=== PATIENT | female | born 1955 | race Caucasian/White ===

== ENCOUNTER 2020-05-29 09:47 | Outpatient (CLI) | payer SELFPAY ==
[2020-05-29 10:02] LABS: Basophils Absolute Auto 0.09 K/mm3 (0.00-0.10); Basophils Percent Auto 1.2 % (0.0-1.0); Eosinophils Absolute Auto 0.14 K/mm3 (0.02-0.50); Eosinophils Percent Auto 1.8 % (1.0-6.0); Hematocrit 47.7 % (35.0-42.0); Hemoglobin 16.3 g/dL (11.7-13.8); Immature Granulocyte Absolute 0.03 K/mm3 (0.00-0.00); Immature Granulocyte Percent A 0.4 % (0.0-0.0); Lymphocytes Absolute Auto 1.82 K/mm3 (1.10-4.50); Lymphocytes Percent Auto 23.4 % (18.0-42.0); Mean Corpuscular HGB Conc 34.2 g/dL (32.0-36.0); Mean Corpuscular Volume 93.7 fL (78.0-102.0); Mean Platelet Volume 9.1 fl (9.2-11.8); Monocytes Absolute Auto 0.54 K/mm3 (0.10-0.90); Monocytes Percent Auto 6.9 % (2.0-11.0); Neutrophils Absolute Auto 5.2 K/mm3 (1.7-7.2); Neutrophils Percent Auto 66.3 % (50.0-70.0); Platelet Count Result 295 K/mm3 (150-420); Red Blood Count 5.09 M/mm3 (4.20-5.40); Red Cell Distribution Width 12.3 % (11.6-14.4); White Blood Count 7.8 K/mm3 (4.8-10.8)
[2020-05-29 11:17] LABS: Alanine Aminotransferase 21 U/L (14-59); Albumin Level 4.3 g/dL (3.4-5.0); Alkaline Phosphatase 141 U/L (46-116); Anion Gap 14.9 mmol/L (7-16); Aspartate Amino Transferase 21 U/L (15-37); Bilirubin,Total 0.7 mg/dL (0.00-1.00); Blood Urea Nitrogen 11 mg/dL (7-18); Calcium 9.3 mg/dL (8.5-10.1); Carbon Dioxide 26 mmol/L (21-32); Chloride 105 mmol/L (98-108); Cholesterol 146 mg/dL (0-200); Estimated Glomerular Filt Rate > 60; Glucose 82 mg/dL (70-99); HDL Direct 46 mg/dL (40-60); LDL Cholesterol Calculated 86 mg/dL (<130); Osmolality Calculated 292 mOsm/kg (285-295); Potassium 3.9 mmol/L (3.5-5.1); Sodium 142 mmol/L (136-145); Total Protein 7.5 g/dL (6.4-8.2); Triglycerides 69 mg/dL (0-150)
== END 2020-05-29 09:48 | disposition home or self-care (01) ==
PROVIDERS: PCP Internal Medicine; Visit Provider Internal Medicine
DX: E78.5 Hyperlipidemia, unspecified (principal); E87.6 Hypokalemia; E86.0 Dehydration
CPT/HCPCS: 36415; 80053; 80061; 85025

== ENCOUNTER 2021-02-22 12:24 | Outpatient (CLI) | payer MEDICARE, SELFPAY ==
--- NOTE | ~2021-02-22 | MM_ITS ---
EXAMINATION: MM screening steven BI w ramesh HISTORY: Screening mammogram, history of right breast cancer TECHNIQUE: Craniocaudal and mediolateral oblique 3-D tomosynthesis images were obtained and synthetic 2-D images were generated. CAD analysis was submitted and interpreted. COMPARISON: No prior mammogram is available for comparison at this institution. BREAST PARENCHYMAL COMPOSITION: There are scattered areas of fibroglandular density. FINDINGS: Slight difference in breast size, right smaller than left, likely relate to treatment for b reast cancer. There is no evidence of suspicious mass, calcification, or architectural distortion to suggest malignancy in either breast. IMPRESSION: 1. No mammographic evidence of malignancy. 2. Recommend routine screening mammography in one year. BI-RADS Category 1: Negative Reviewed, dictated and finalized at location A.
--- NOTE | ~2021-02-22 | DEXA_ITS ---
Bone Density Report Name: Maty Jarvis Age: 65 Sex: Female Ethnicity: White Date of : 1955 Indication: postmenopausal; screening for osteoporosis; cancer; Referring Provider: Catherine, Stefani Pineda Study: Bone densitometry was performed. Exam Date: February 22, 2021 Accession number: [id number] Bone Density: Region BMD T-score Z-score Classification AP Spine(L1-L4) 0.932 -1.0 0.8 Normal Femoral Neck (Left) 0.610 -2.2 -0.6 Osteopenia Total Hip (Left) 0.864 -0.6 0.7 Normal Femoral Neck (Right) 0.655 -1.8 -0.2 Osteopenia Total Hip (Right) 0.846 -0.8 0.5 Normal Femoral Neck Mean 0.632 -2.0 -0.4 Osteopenia Total Hip Mean 0.855 -0.7 0.6 Normal World Health Organization criteria for BMD impression classify patients as: Normal (T-score at or above -1.0), Osteopenia (T-score between -1.0 and -2.5), or Osteoporosis (T-score at or below -2.5). 10-year Fracture Risk(1): Major Osteoporotic Fracture 11% Hip Fracture 3.3% Reported Risk Factors: [place] (), Neck BMD=0.610, BMI=21.8, smoking (1) FRAX(R) Version 3.08. Fracture probability calculated for an untreated patient. Fracture probability may be lower if the patient has received treatment. Previous Exams: Region Exam Age BMD T-score BMD Change BMD Change Date g/cm2 vs Baseline vs Previous AP Spine (L1-L4) 02/22/2021 65 0.932 -1.0 -0.018 (-1.8%) -0.018 (-1.8%) 04/15/2015 59 0.950 -0.9 Total Hip(Left) 02/22/2021 65 0.864 -0.6 0.000 (0.0%)# 0.000 (0.0%)# 04/15/2015 59 0.864 -0.6 *Denotes significance at 95% confidence level, LSC for AP Spine = 0.022 g/cm2, LSC for Total Hip = 0.027 g/cm2 # Denotes dissimilar scan types or analysis methods Clinical Information Provided by Patient: Smokes Has used the following medications: Vitamin D Has the following medical conditions: Cancer Patient maximum height was 62 No regular weight bearing exercise Drinks caffeinated beverages Onset of menses at age 10 Number of children 3 Impression: The patient has low bone mass, based on the Left Femoral Neck T-score. The patient has risk factors, including: smoking. No significant bone loss was observed. Discussion: BONE DENSITY IS LOW AT ONE OR MORE SKELETAL SITES. This patient's lowest T-score is low at one or more skeletal sites. It meets the World Health Organization's (WHO) criteria for ?low bone mass? (T-score between -1.0 and -2.5). The patient's 10-year risk of fracture as calculated by F
== END 2021-02-22 12:25 | disposition home or self-care (01) ==
PROVIDERS: PCP Internal Medicine; Visit Provider Nurse Practitioner Family
DX: Z12.31 Encounter for screening mammogram for malignant neoplasm of breast (principal); Z78.0 Asymptomatic menopausal state
CPT/HCPCS: 77063; 77067; 77080

== ENCOUNTER 2022-05-05 13:49 | Outpatient (CLI) | payer MEDICARE, SELFPAY ==
--- NOTE | ~2022-05-05 | US_ITS ---
EXAMINATION: US arterial ankle brachial ind DATE: 05/05/2022 14:53 INDICATION: Peripheral arterial disease. Smoker. TECHNIQUE: Segmental pressures and plethysmographic and Doppler waveforms of the brachial and lower e xtremity arteries were obtained. COMPARISON: None. FINDINGS: Right and left brachial artery pressures of 121 mm Hg and 113 mm Hg, respectively, are concordant (no rmal difference <= 30 mmHg). The right ankle-brachial index (MARCI) is 0.82 (normal >= 0.9-1.0). Arterial Doppler waveforms are biph asic with minimal flow reversal. The left MARCI is 0.91. Arterial Doppler waveforms are biphasic with minimal flow reversal. IMPRESSION: Right MARCI is mildly diminished at 0.82 Left MARCI within lower limits of normal range at 0.91 Reviewed, dictated and finalized at Location A. Reviewed, dictated and finalized at location A.
== END 2022-05-05 13:50 | disposition home or self-care (01) ==
LOC: CHSIMG 13:51
PROVIDERS: PCP Internal Medicine; Visit Provider Nurse Practitioner Family
DX: I73.9 Peripheral vascular disease, unspecified (principal); F17.200 Nicotine dependence, unspecified, uncomplicated
CPT/HCPCS: 93922

== ENCOUNTER 2022-05-17 13:43 | Outpatient (CLI) | payer MEDICARE, SELFPAY ==
--- NOTE | ~2022-05-17 | XR_ITS ---
EXAM: XR lumbar spine 2-3V DATE: 05/17/2022 14:28 HISTORY: back pain . COMPARISON: 11/21/2012. FINDINGS: Cholecystectomy clips. Mid abdominal surgical material, possible coils. Decreased mineraliz ation. 5 nonrib-bearing lumbar-type vertebral bodies. Pedicles intact. Normal vertebral body alignmen t. Vertebral body heights preserved. Multilevel disc space narrowing and marginal osteophytosis, mode rate at L3-4. Multilevel facet sclerosis. No fracture or dislocation. IMPRESSION: Osteopenia Multilevel mild-moderate degenerative disc disease. Multilevel facet arthropat hy. Reviewed, dictated and finalized at location K. IMPRESSION: Osteopenia Multilevel mild-moderate degenerative disc disease. Mult ilevel facet arthropathy.
--- NOTE | ~2022-05-17 | MM_ITS ---
EXAMINATION: MM screening steven BI w ramesh HISTORY: Screening mammogram TECHNIQUE: Craniocaudal and mediolateral oblique 3-D tomosynthesis images were obtained and synthetic 2-D images were generated. CAD analysis was submitted and interpreted. COMPARISON: 02/22/2021, 02/22/2019 bilateral screening mammogram examinations BREAST PARENCHYMAL COMPOSITION: There are scattered areas of fibroglandular density. FINDINGS: Surgical clips, right axillary area with axillary node dissection. History of right partial mastectomy for breast cancer. There is no evidence of suspicious mass, calcification, or architectur al distortion to suggest malignancy in either breast. There has been no suspicious interval change. IMPRESSION: 1. No mammographic evidence of malignancy. 2. Recommend routine screening mammography in one year. BI-RADS Category 2: Benign finding(s). Reviewed, dictated and finalized at location A.
== END 2022-05-17 13:44 | disposition home or self-care (01) ==
LOC: CHSIMG 13:45
PROVIDERS: PCP Internal Medicine; Visit Provider Internal Medicine
DX: M54.9 Dorsalgia, unspecified (principal); Z12.31 Encounter for screening mammogram for malignant neoplasm of breast
CPT/HCPCS: 72100; 77063; 77067

== ENCOUNTER 2023-01-12 10:10 | Outpatient (CLI) | payer MEDICARE, SELFPAY ==
--- NOTE | ~2023-01-12 | XR_ITS ---
XR chest 2V 01/12/2023 10:36 Indication: Right rib pain Procedure: 2 view chest Comparison: 07/18/2018 Findings: There are surgical changes overlying the right thorax laterally. Heart size normal. No foca l air space disease, pulmonary edema, pleural effusion or suspected pneumothorax. The lungs are hyper inflated which is consistent with, but not diagnostic of chronic obstructive pulmonary disease. There are cholecystectomy clips. There is pectus excavatum. Impression: 1: No acute cardiopulmonary disease. Reviewed, dictated and finalized at location A. OR PRODUCT DESIGNER Impression: 1: No acute cardiopulmonary disease.
== END 2023-01-12 10:11 | disposition home or self-care (01) ==
PROVIDERS: PCP Internal Medicine; Visit Provider Internal Medicine
DX: R07.89 Other chest pain (principal)
CPT/HCPCS: 71046

== ENCOUNTER 2023-06-27 15:19 | Outpatient (CLI) | payer MEDICARE, SELFPAY ==
--- NOTE | ~2023-06-27 | XR_ITS ---
EXAM: XR hip RT min 2V DATE: 06/27/2023 15:43 HISTORY: Fall x3 weeks, right hip pain . COMPARISON: 08/14/2013. FINDINGS: Decreased mineralization. No fracture or dislocation. No lytic or blastic lesion. Joint sp aces are maintained. No erosion or periosteal change. Soft tissues within normal limits. IMPRESSION: No acute osseous finding in the right hip. Reviewed, dictated and finalized at location K.
== END 2023-06-27 15:20 | disposition home or self-care (01) ==
PROVIDERS: PCP Internal Medicine; Visit Provider Internal Medicine
DX: G89.29 Other chronic pain (principal); E78.5 Hyperlipidemia, unspecified; M25.551 Pain in right hip
CPT/HCPCS: 73502

== ENCOUNTER 2025-11-06 11:37 | Outpatient (CLI) | payer MEDICAID, MEDICARE, SELFPAY ==
--- NOTE | ~2025-11-06 | XR_ITS ---
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 Technique: 2 views obtained. Findings: The lungs are clear, no effusion. No pneumothorax. Heart is normal size. Mediastinal and hilar contours are within normal limits. Bony thorax no acute abnormality. Impression: No acute cardiopulmonary abnormality. Reviewed, dictated and finalized at location P. DISTRIBUTOR Impression: No acute cardiopulmonary abnormality.
[2025-11-06 12:20] LABS: Hematocrit 43.6 % (35.0-42.0); Hemoglobin 15.0 g/dL (11.7-13.8); Mean Corpuscular HGB Conc 34.4 g/dL (32-36); Mean Corpuscular Hemoglobin 31.8 pg (27.0-31.0); Mean Corpuscular Volume 92.6 fL (78.0-102.0); Platelet Count Result 436 K/mm3 (150-420); Red Blood Count 4.71 M/mm3 (4.20-5.40); White Blood Count 21.5 K/mm3 (4.8-10.8)
[2025-11-06 12:32] LABS: Add Urine Microscopic? YES; Appearance Urine Cloudy (Clear); Glucose Urine UA Negative (Negative); Leukocyte Esterase Ur 2+ LEU/UL (Negative); Nitrate Urine Positive (Negative); Specific Grav Ur 1.015 (1.010-1.020)
[2025-11-06 12:36] LABS: Alanine Aminotransferase 53 U/L (6-35); Albumin Level 4.5 g/dL (3.5-5.1); Alkaline Phosphatase 167 U/L (38-126); Anion Gap 15 mmol/L (4-12); Aspartate Amino Transferase 146 U/L (14-36); Bilirubin,Total 1.4 mg/dL (0.2-1.3); Blood Urea Nitrogen 35 mg/dL (7-17); CRP 5.4 mg/dL (<1.0); Calcium 9.3 mg/dL (8.4-10.2); Carbon Dioxide 32 mmol/L (22-30); Chloride 91 mmol/L (98-107); Estimated Glomerular Filt Rate > 60; Glucose 110 mg/dL (65-110); Osmolality Calculated 295 mOsm/kg (285-295); Sodium 138 mmol/L (137-145); Total Protein 7.5 g/dL (6.3-8.2)
[2025-11-06 12:44] LABS: Potassium 2.7 mmol/L (3.4-5.0)
[2025-11-06 12:50] LABS: Free T4 Free Thyroxine 2.21 ng/dL (0.78-2.19)
[2025-11-06 12:51] LABS: Free T3 2.54 pg/mL (2.18-3.98)
[2025-11-06 13:04] LABS: Thyroid Stimulating Hormone 1.150 uIU/mL (0.465-4.680)
[2025-11-06 13:40] LABS: Vitamin B12 915.0 pg/mL (239-931)
[2025-11-07 15:09] LABS: ANA by IFA Rfx Titer/Pattern Negative (.)
== END 2025-11-06 11:38 | disposition home or self-care (01) ==
PROVIDERS: PCP Internal Medicine; Visit Provider Internal Medicine
DX: K62.5 Hemorrhage of anus and rectum (principal); R63.4 Abnormal weight loss; I73.9 Peripheral vascular disease, unspecified
CPT/HCPCS: 36415; 71046; 80053; 81001; 82607; 82746; 83921; 84439; 84443; 84481; 85027; 86037; 86038; 86140; 87086; 87186

== ENCOUNTER 2025-11-06 15:01 | Emergency (ER) | payer MEDICARE, MEDICAID, SELFPAY ==
[2025-11-06] VITALS (46 sets, daily range): BP systolic 80–125; BP diastolic 44–77; PULSE 69–88; RESP 11–21; TEMP 36.7; O2SAT 93–100
--- NOTE | ~2025-11-06 | XR_ITS ---
EXAMINATION: XR chest 1V portable DATE: 11/06/2025 16:07 INDICATION: Leukocytosis. History of breast cancer status post surgery. TECHNIQUE: A single frontal view of the chest was obtained. COMPARISON: Chest x-ray 11/06/2025 at 12:21 PM. FINDINGS: Heart size is normal. Lungs are clear of acute process. Postsurgical changes of right breast and axilla. IMPRESSION: 1. No acute findings. No interval change from earlier study of same date. Reviewed, dictated and finalized at location T. TRAINER
--- NOTE | ~2025-11-06 | CT_ITS ---
EXAM/PROCEDURE: CT abdomen pelvis wo con HISTORY: Urinary tract infection/rule out pyelo COMPARISON: July 03, 2013 TECHNIQUE: Noncontrast CT of the abdomen and pelvis performed. FINDINGS: In the lung bases, minimal reticulation and groundglass opacification in the lung bases. 5 x 4 mm nodule also present in the left lung base image 12 series 4. Partially visualized pericardial effusion measuring up to 8 mm along the lower anterior margin. In the abdomen and pelvis, the bowel gas pattern is nonobstructive with no free air free fluid or pneumatosis seen. Pelvocaliectasis of the left kidney with borderline mild hydronephrosis present. 5 x 4 mm stone in the upper pole of the left kidney. No definite ureteral stones seen, although the mid and distal ureters are poorly seen. The right kidney appears normal with no urolithiasis or evidence of hydronephrosis or hydroureter. Urinary bladder is nondistended but appears grossly normal for technique. No grossly inflamed appendix. No AAA. Moderately extensive atherosclerotic calcification present. Pancreas spleen stomach and liver as well as adrenal glands appear normal. Uterus and adnexal regions appear within normal limits. Para diffuse degenerative changes throughout the bones. No bulky mesenteric or retroperitoneal lymphadenopathy or masses. IMPRESSION: 1. Directed noncontrast CT of the abdomen and pelvis demonstrating possible early or mild obstruction involving the left kidney. 5 x 4 mm left kidney stone with no definite ureteral stones identified. 2. Small areas of patchy opacification lung bases possibly representing sequelae from previous infection or aspiration. There is a 5 mm left lung base nodule. Correlate with follow-up nonemergent chest CT. 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 Directed noncontrast CT of the abdomen and pelvis demonstrating possible ear ly or mild obstruction involving the left kidney. 5 x 4 mm left kidney stone wi th no definite ureteral stones identified. 2. Small areas of patchy opacification lung bases possibly representing sequela e from previous infection or aspiration. There is a 5 mm left lung base nodule. Correlate with follow-up nonemergent chest CT.
--- NOTE | 2025-11-06 15:25 | ECG_ITS ---
Test Date: 2025-11-06 15:37:32 Measurements Intervals Sloan Rate: 76 P: 64 MA: 161 QRS: 30 QRSD: 129 T: 264 QT: 361 QTc: 407 Interpretive Statements SINUS RHYTHM WITH SINUS ARRHYTHMIA POSSIBLE LEFT ATRIAL ENLARGEMENT INCOMPLETE RIGHT BUNDLE BRANCH BLOCK ST-T WAVE ABNORMALITY IN ANTEROLAT/INF LEADS- CONSIDER ISCHEMIA BASELINE ARTIFACT- I, II, III, AVR, AVL, AVF, V6 ABNORMAL ECG No previous ECG available for comparison Electronically Signed On 11-06-2025 16:25:43 PROPOSAL REP by Joel Bañuelos D.O.
[2025-11-06 16:03] LABS: INR 1.0; Partial Thromboplastin Time 26.3 Sec (23.9-30.70); Prothrombin Time 11.5 Seconds (9.50-12.1)
[2025-11-06] MEDS: KCL 20 MEQ/SW 100 ML 100 ML 50 MEQ IVPB (16:15)
[2025-11-06] MEDS: SODIUM CHLORIDE 0.9% IV 1,000 ML 999 ML IV CONT ×4 (16:16→21:57)
[2025-11-06] MEDS: POTASSIUM BICARBONATE 25 MEQ TABEF 50 MEQ PO (16:16)
--- NOTE | 2025-11-06 17:34 | ED_ITS ---
HPI - Recheck/Abnormal Lab/Rx General Chief Complaint: Recheck/Abnormal Lab/Rx Stated Complaint: abnormal labs Time Seen by Provider: 11/06/25 15:16 Source: patient and family Mode of arrival: ambulatory Limitations: no limitations History of Present Illness HPI narrative: This is a 69-year-old female that has a history of hypertension presents to her primary care physician's office with some episodes of diarrhea for the last 2 weeks but that has recently resolved but having toe pain and went to see her primary care physician patient was also having acid fatigue with no chest pain no nausea vomiting patient is not short of breath currently no diarrhea no abdominal pain no flank pain does have some suprapubic tenderness and dysuria. Labs performed by her PCP showed an elevated white count with a decreased potassium level and positive urinalysis. Related Data Allergies Allergy/AdvReac Type Severity Reaction Status Date / Time No Known Allergies Allergy Verified 11/06/25 15:29 Review of Systems Review of Systems: All systems reviewed & are unremarkable except as noted in HPI and below PMFSH Past Medical History Medical History HTN (hypertension) Exam Const: General: no acute distress Nutritional Appearance: thin Orientation/consciousness: patient oriented x3 HENMT: Head: normal to inspection Neck: Neck: normal visual inspection, no lymphadenopathy and no meningeal signs Chest: Chest palpation & inspection: normal inspection of the chest Resp: Effort & Inspection: normal respiratory effort Auscultation: clear to auscultation bilaterally Cardio: Rate: regular rate Rhythm: regular rhythm GI: Auscultation: normal bowel sounds : Other: Suprapubic tenderness Back/Spine/Pelvis: Back: no CVA tenderness Skin: General skin exam: normal color Rashes: no rashes Wounds: no wounds Neuro: General: patient oriented x3, moves all extremities and no meningeal signs Extrem: General: normal to inspection, no clubbing, cyanosis or edema and no pedal edema Course Course Emergency Course: Medical decision making narrative: The patient was evaluated by myself in the emergency department. History obtained from the patient who is in the pannus story and physical exam performed witnessed by nurse. EKG performed showed normal sinus rhythm with no ST or T changes a chest x-ray performed showed no acute cardiopulmonary abnormality CT abdomen without contrast performed shows some bibasilar opacities consistent with pneumonia with a elevated white count and an elevated lactic acid of 2.4. Patient had a potassium level of 2.7 and was given normal saline with some K rider. Patient had a UA that was positive and started on ceftriaxone and azithromycin. Repeat assessment: Patient doing well on repeat exam with no acute distress Symptoms and have are stable since arrival to the emergency department Repeat vitals are stable Patient agrees with discussion after shared medical decision making and agrees with admission. All questions answered to the patient's satisfaction. Vital Signs Vital signs: Vital Signs Temperature 36.7 C 11/06/25 15:01 Pulse Rate 80 11/06/25 15:01 Respiratory Rate 20 11/06/25 15:01 Blood Pressure 125/58 L 11/06/25 15:01 Pulse Oximetry 100 11/06/25 15:01 Oxygen Delivery Room Air 11/06/25 15:01 Temperature 36.7 C 11/06/25 15:01 Pulse Rate 80 11/06/25 15:01 Respiratory Rate 20 11/06/25 15:01 Blood Pressure 125/58 L 11/06/25 15:01 Pulse Oximetry 100 11/06/25 15:01 Oxygen Delivery Room Air 11/06/25 15:01 MDM Differential Diagnosis Differential Diagnosis: Pneumonia/UTI/hypokalemia Lab Data Labs: Lab Results 11/06/25 Range/Units 15:44 PT 11.5 (9.50-12.1) Seconds INR 1.0 APTT 26.3 (23.9-30.70) Sec Lactic Acid 2.4 H (0.7-2.0) mmol/L Imaging Data Radiologist's impression: ITS Impressions Chest X-Ray 11/06/25 16:08 IMPRESSION: 1. No acute findings. No interval change from earlier study of same date. Abdomen/Pelvis CT 11/06/25 16:09 IMPRESSION: 1. Directed noncontrast CT of the abdomen and pelvis demonstrating possible early or mild obstruction involving the left kidney. 5 x 4 mm left kidney stone with no definite ureteral stones identified. 2. Small areas of patchy opacification lung bases possibly representing sequelae from previous infection or aspiration. There is a 5 mm left lung base nodule. Correlate with follow-up nonemergent chest CT. Critical Care Time Critical Care Time Critical Care Time: No Discharge Plan Discharge Clinical Impression: Acute hyperkalemia, Acute UTI Pneumonia Qualifiers: Pneumonia type: due to unspecified organism Laterality: bilateral Lung location: lower lobe of lung Qualified Code(s): J18.9 - Pneumonia, unspecified o rganism Patient Disposition: Acute Care Hospital Condition: Guarded Prognosis Patient Language: Gambian Follow-up/Referrals: Moise Monae MD [Primary Care Provider, Internal Medicine] Time of Disposition: 17:41
--- OUTSIDE RECORDS SUMMARY | 2025-11-06 18:10 | XMS_ITS | Encounter Summary ---
Author Organization [facility] Address [address] [place] [address] Care Team Providers Care Sap Plant Maintenance Consultant Name Role Phone Moise Monae MD Primary Care Provider [phone] Stuart Gilman MD Unavailable [phone] Encounter Details Date Type Department Care Team (Latest Contact Info) Description 10/02/2018 Abstract [facility] Trinidad Marina MD Social History Tobacco Use Types Packs/Day Years Used Date Smoking Tobacco: Smoker, Current Status Unknown Comments Unknown Sex and Gender Information Value Date Recorded Sex Assigned at Not on file Legal Sex Female 9:10 PM CDT Gender Identity Not on file Sexual Orientation Not on file documented as of this encounter Plan of Treatment Not on file documented as of this encounter Visit Diagnoses Not on filedocumented in this encounter Care Teams Sap Plant Maintenance Consultant Relationship Specialty Start Date End Date Moise Monae MD PCP - General INTERNAL MEDICINE 08/24/18 Stuart Gilman MD Referring Physician INTERVENTIONAL CARDIOLOGY 08/24/18 documented as of this encounter
--- OUTSIDE RECORDS SUMMARY | 2025-11-06 18:10 | XMS_ITS | Clinical Summary ---
Author Organization [facility] Address [facility] [place] [address] Care Team Providers Care Branch Operations Manager Name Role Phone Moise Monae MD Primary Care Provider [phone] Stuart Gilman MD Unavailable [phone] Allergies No known active allergies Medications nortriptyline (PAMELOR) 10 MG capsule Take 3 tablets by mouth nightly at bedtime. 10/07/2015 Active cyclobenzaprine (FLEXERIL) 10 MG tablet Take 1 tablet by mouth nightly at bedtime. 10/07/2015 Active atorvastatin 40 MG tablet Take 1 tablet by mouth nightly. 11/18/2015 Active aspirin 325 MG tablet Take 1 tablet by mouth daily. 10/07/2015 Active Multiple Vitamin (DAILY-VITAMIN) Tab Take 1 tablet by mouth daily. 30 tablet 08/24/2018 Active Active Problems Problem Noted Date Diagnosed Date Small bowel intussusception 01/10/2019 Hyperlipidemia Essential hypertension Bilateral carotid artery stenosis Family History Medical History Relation Comments Sudden Cardiac Brother Heart Attack Father Cancer Mother Hypertension Mother Relation Status Comments Brother Father Mother Social History Tobacco Use Types Packs/Day Years Used Date Smoking Tobacco: Former Cigarettes Q uit: 2018 Smokeless Tobacco: Never Comments No Sex and Gender Information Value Date Recorded Sex Assigned at Not on file Legal Sex Female 9:10 PM CDT Gender Identity Not on file Sexual Orientation Not on file Last Filed Vital Signs Vital Sign Reading Time Taken Comments Blood Pressure 132/61 09/30/2019 10:35 AM VALET RUNNER Pulse 74 09/30/2019 10:35 AM VALET RUNNER Temperature 36.6 C (97.9 F) 09/30/2019 10:06 AM VALET RUNNER Respiratory Rate 20 09/30/2019 10:35 AM VALET RUNNER Oxygen Saturation 100% 09/30/2019 10:35 AM VALET RUNNER Inhaled Oxygen Concentration - - Weight 49.9 kg (110 lb) 09/30/2019 8:30 AM VALET RUNNER Height 160 cm (5' 3) 09/30/2019 8:30 AM VALET RUNNER Body Mass Index 19.49 09/30/2019 8:30 AM VALET RUNNER Plan of Treatment Health Maintenance Due Date Last Done Comments Hepatitis C 1972 DTaP, Tdap and Td Vaccines ( 1 - Tdap) 1973 Mammogram Screening 1994 Pneumococcal Vaccine: 50+ Years (1 of 1 - PCV) 2004 Zoster Vaccines (1 of 2) 2004 Annual Medicare Wellness Visit 2019 Dexa Scan (General) 2019 COVID-19 Vaccine (2024-2 6 season) 2025 Influenza Adult (#1) 2025 Colorectal Cancer Screening Colonoscopy (10 Years) 09/30/2029 09/30/2019, 09/30/2019, 09/30/2019 RSV Immunization or 60+ Years (1 - 1-dose 75+ series) 2029 Hepatitis A Vaccines Aged Out No long er eligible based on patient's age to complete this topic Meningococcal B Vaccine Aged Out No l onger eligible based on patient's age to complete this topic Meningococcal Vaccine Aged Out No charlotte duy eligible based on patient's age to complete this topic RSV Immunizations Under 20 Months Aged Out No longer eligible b ased on patient's age to complete this topic Procedures Procedure Name Priority Date/Time Associated Diagnosis Comments COLONOSCOPY 09/30/2019 10:00 AM VALET RUNNER from Last 3 Months or Most Recently Relevant to Health Maintenance Results * COLONOSCOPY (09/30/2019 10:00 AM VALET RUNNER) Andrei Mead MD GI PROCEDURE ORDERABLES Final Re sult from Last 3 Months or Most Recently Relevant to Health Maintenance [facility] Care Teams Branch Operations Manager Relationship Specialty Start Date End Date Moise Monae MD PCP - General INTERNAL MEDICINE 08/24/18 Stuart Gilman MD Referring Physician INTERVENTIONAL CARDIOLOGY 08/24/18
--- OUTSIDE RECORDS SUMMARY | 2025-11-06 18:10 | XMS_ITS | Encounter Summary ---
Author Organization [facility] Address [facility] [place] [address] Care Team Providers Care Gas Pipe Layer Name Role Phone Moise Monae MD Primary Care Provider [phone] Stuart Gilman MD Unavailable [phone] Encounter Details Date Type Department Care Team (Late st Contact Info) Description 09/29/2018 Abstract [facility] - [address] , [address] [place] [address] Homero Richmond MD [address] [place] [address] Social History Tobacco Use Types Packs/Day Years [...] on filedocumented in this encounter Care Teams Gas Pipe Layer Relationship Specialty Start Date End Date Moise Monae MD PCP - General INTERNAL MEDICINE 08/24/18 Stuart Gilman MD Referring Physician INTERVENTIONAL CARDIOLOGY 08/24/18 documented as of this encounter
[2025-11-06] MEDS: cefTRIAXone 1 GM in SODIUM CHLORIDE 0.9% IV 50 ML 100 ML IVPB (18:29)
--- NOTE | 2025-11-06 18:36 | PC.NURSE ---
RN will start Azithromycin following Rocephin administration.
--- OUTSIDE RECORDS SUMMARY | 2025-11-06 18:38 | XMS_ITS | Clinical Summary ---
Author Organization [facility] Address [facility] [place] [address] Care Team Providers Care Photocopying Equipment Repairer Name Role Phone Moise Monae MD Primary Care Provider [phone] Stuart Gilman MD Unavailable [phone] Allergies No known active allergies Medications nortriptyline [...] Comments Blood Pressure 132/61 09/30/2019 10:35 AM LOG CHIPPER Pulse 74 09/30/2019 10:35 AM LOG CHIPPER Temperature 36.6 C (97.9 F) 09/30/2019 10:06 AM LOG CHIPPER Respiratory Rate 20 09/30/2019 10:35 AM LOG CHIPPER Oxygen Saturation 100% 09/30/2019 10:35 AM LOG CHIPPER Inhaled Oxygen Concentration - - Weight 49.9 kg (110 lb) 09/30/2019 8:30 AM LOG CHIPPER Height 160 cm (5' 3) 09/30/2019 8:30 AM LOG CHIPPER Body Mass Index 19.49 09/30/2019 8:30 AM LOG CHIPPER Plan of Treatment Health Maintenance Due Date [...] Associated Diagnosis Comments COLONOSCOPY 09/30/2019 10:00 AM LOG CHIPPER from Last 3 Months or Most Recently Relevant to Health Maintenance Results * COLONOSCOPY (09/30/2019 10:00 AM LOG CHIPPER) Andrei Mead MD GI PROCEDURE ORDERABLES Final Re sult from Last 3 Months or Most Recently Relevant to Health Maintenance [facility] [place] [address] * Guarantor: Emmanuel Jarvisa Corrina Account Type Relation to Patient Date of Phone Billing Address Personal/Family Self [address] [place] [id number] Care Teams Photocopying Equipment Repairer Relationship Specialty Start Date End Date Moise Monae MD PCP - General INTERNAL MEDICINE 08/24/18 Stuart Gilman MD Referring Physician INTERVENTIONAL CARDIOLOGY 08/24/18
--- OUTSIDE RECORDS SUMMARY | 2025-11-06 18:38 | XMS_ITS | Encounter Summary ---
Author Organization [facility] Address [facility] [place] [address] Care Team Providers Care Psychiatric Aide Name Role Phone Moise Monae MD Primary Care Provider [phone] Stuart Gilman MD Unavailable [phone] Encounter Details Date Type Department Care Team (Late st Contact Info) Description 09/29/2018 Abstract [facility] - [address] , [address] [place] [address] Homero Richmond MD [address] [place] [address] Social History Tobacco Use Types Packs/Day Years [...] on filedocumented in this encounter Care Teams Psychiatric Aide Relationship Specialty Start Date End Date Moise Monae MD PCP - General INTERNAL MEDICINE 08/24/18 Stuart Gilman MD Referring Physician INTERVENTIONAL CARDIOLOGY 08/24/18 documented as of this encounter
--- OUTSIDE RECORDS SUMMARY | 2025-11-06 18:38 | XMS_ITS | Encounter Summary ---
Author Organization [facility] Address [address] [place] [address] Care Team Providers Care Pelt Shearer Name Role Phone Moise Monae MD Primary Care Provider [phone] Stuart Gilman MD Unavailable [phone] Encounter Details Date Type Department Care Team (Latest Contact Info) Description 10/02/2018 Abstract [facility] Trinidad Marina MD Social History [...] on filedocumented in this encounter Care Teams Pelt Shearer Relationship Specialty Start Date End Date Moise Monae MD PCP - General INTERNAL MEDICINE 08/24/18 Stuart Gilman MD Referring Physician INTERVENTIONAL CARDIOLOGY 08/24/18 documented as of this encounter
--- NOTE | 2025-11-06 18:50 | PC.NURSE ---
ERP is aware of patient's blood pressure going up and down. No new orders, will continue to monitor.
--- NOTE | 2025-11-06 19:01 | PC.NURSE ---
Vital signs pulled from interface in error.
[2025-11-06] MEDS: AZITHROMYCIN IV 500 MG in SODIUM CHLORIDE 0.9% IV 250 ML IVPB (19:30)
[2025-11-06] MEDS: SODIUM CHLORIDE 0.9% IV 1,000 ML 100 ML IV CONT (19:32)
[2025-11-06] MEDS: PROCHLORPERAZINE EDISYLATE 10 MG/2 ML VIAL IV PUSH (19:56)
--- NOTE | 2025-11-06 23:06 | PC.NURSE ---
spoke with Isaac with EMS ([facility]), said it will be a little bit before they get here, road conditions and on mutual aid at this time.
[2025-11-07 00:23] VITALS: BP 94/60; PULSE 72; RESP 20; TEMP 36.7; O2SAT 95
--- NOTE | 2025-11-10 13:31 | PC.NURSE ---
PRELIMINARY BLOOD CULTURE REPORT; NO GROWTH IN 24 HOURS.
== END 2025-11-07 00:23 | disposition short-term general hospital (02) ==
PROVIDERS: Emergency Provider Emergency Medicine; PCP Internal Medicine
DX: J18.9 Pneumonia, unspecified organism (principal); N39.0 Urinary tract infection, site not specified; E87.5 Hyperkalemia; I10 Essential (primary) hypertension
CPT/HCPCS: 36415; 71045; 74176; 83605; 85610; 85730; 93005; 96361; 96365; 96366; 96367; 99285; A9270; J0456; J0696; J0780; J3480; J7030; J7050